=== PATIENT | male | born 1955 | race Hispanic/Latino ===

== ENCOUNTER 2019-01-29 05:47 | Day surgery (SDC) | payer OTHER ==
[~2019-01-29] VITALS: Ht 165.1 cm; Wt 106.6 kg
[~2019-01-29 05:47] MED LIST: PRILOSEC PO
[2019-01-29] MEDS ORDERED: SODIUM CHLORIDE 0.9% 1000ML 1,000 ML IV ONE (05:54)
[2019-01-29] MEDS ORDERED: PROPOFOL 10 MG/ML 20ML VIAL IV ONE (06:14)
[2019-01-29] MEDS ORDERED: LIDOCAINE HCL 1% 20 ML VIAL ONE (06:14)
[2019-01-29 06:15] VITALS: BP 157/90
[2019-01-29 08:15] VITALS: BP 109/60
[2019-01-29 08:20] VITALS: BP 139/76
[2019-01-29 08:27] VITALS: BP 140/80
[2019-01-29 08:34] VITALS: BP 147/77
[2019-01-29 08:40] VITALS: BP 135/71
== END 2019-01-29 08:45 | disposition home or self-care (01) ==
LOC: ENDO 05:47 → DAH 05:47 → ENDO 08:45
PROVIDERS: ATTEND Internal Medicine Gastroenterology
DX: Z12.11 Encounter for screening for malignant neoplasm of colon (principal); K64.0 First degree hemorrhoids; K63.5 Polyp of colon; K62.1 Rectal polyp; K21.9 Gastro-esophageal reflux disease without esophagitis; I10 Essential (primary) hypertension; J45.909 Unspecified asthma, uncomplicated; Z88.0 Allergy status to penicillin; Z98.890 Other specified postprocedural states; Z79.899 Other long term (current) drug therapy; Z87.891 Personal history of nicotine dependence; Z83.3 Family history of diabetes mellitus; Z82.49 Family history of ischemic heart disease and other diseases of the circulatory system
CPT/HCPCS: 45380; 45385; A4215; A4221; A4222; A4223; A4606; A4615; A5200; J2704; J7030